=== PATIENT | female | born 1980 | race Caucasian/White ===

== ENCOUNTER 2018-02-06 14:03 | Inpatient (IN) ==
[2018-02-06] MEDS ORDERED: SODIUM CHLORIDE 0.9% 500 ML IV STA (14:31)
[2018-02-06] MEDS ORDERED: metroNIDAZOLE INJ 500 MG in PREMIX 1 EACH IV STA (14:31)
[2018-02-06] MEDS ORDERED: DICYCLOMINE 20 MG/2 ML AMP IM ONE ×2 (14:31→14:34)
[2018-02-06] MEDS ORDERED: ONDANSETRON 4 MG/2 ML VIAL IV STA (14:31)
[2018-02-06] MEDS ORDERED: PANTOPRAZOLE 40 MG VIAL IV STA (14:31)
[2018-02-06] MEDS ORDERED: PANTOPRAZOLE 40 MG VIAL IV ONE (14:34)
[2018-02-06] MEDS ORDERED: ONDANSETRON 4 MG/2 ML VIAL ONE (14:34)
[2018-02-06] MEDS ORDERED: metroNIDAZOLE 500 MG/100 ML PREMIX IV ONE (15:20)
[2018-02-06 15:24] LABS: Apearance,Urine CLEAR (Clear); Bacteria,Urine Occasional /HPF (Few); Bilirubin,Urine Negative (Negative); Blood, Urine Negative (Negative); Glucose,Urine (UA) Negative (Negative); Ketones,Urine Negative (Negative); Mucus,Urine Occasional /LPF (Occasional); Nitrite,Urine Negative (Negative); Protein,Urine Negative; RBC,Urine <1 /HPF (0-4); Squamous Epithelial Cell,Urine Occasional /HPF (0-10); Urine Color Straw (Yellow); Urine Specific Gravity 1.009 (1.001-1.035); Urine Urobilinogen < 2.0 EU/DL (0.2-1.0); WBC,Urine <1 /HPF (0-6)
[2018-02-06] MEDS ORDERED: MORPHINE 4 MG/1 ML VIAL IV STA ×2 (15:24→15:30)
[2018-02-06] MEDS ORDERED: MORPHINE 4 MG/1 ML VIAL ONE ×2 (15:25→18:25)
[2018-02-06 15:26] LABS: Basophils # 0.1 10*3/uL (0.0-0.2); Basophils % 0.7 % (0.0-0.8); Eosinophils # 0.4 10*3/uL (0.0-0.87); Eosinophils % 3.4 % (0.00-10.9); Hematocrit 42.4 VOL% (35.7-47.0); Hemoglobin 14.4 GM/DL (12.0-16.0); Immature Granulocytes % 1.1 %; Immature Granulocytes Absolute 0.14 #; Lymphocytes # 3.4 10*3/uL (1.4-4.0); Lymphocytes % 27.8 % (21.3-54.2); Mean Corpuscular Hemoglobin 33 PG (27-34); Mean Corpuscular Volume 95.9 FL (87-102); Monocytes # 1.1 10*3/uL (0.11-0.8); Neutrophils # 7.2 10*3/uL (1.4-7.4); Platelet Count 233 T/CUMM (130-400); Red Blood Count 4.42 MC/CUMM (3.8-5.5); Red Cell Distribution Width 11.9 % (9.3-17.3); White Blood Count 12.3 T/CUMM (4-12)
[2018-02-06 15:59] LABS: Alanine Aminotransferase 25 U/L (13-56); Albumin 3.2 G/DL (3.4-5.0); Alkaline Phosphatase 62 U/L (45-117); Amylase 43 U/L (25-115); Aspartate Amino Transferase 24 U/L (0-37); Bilirubin,Total < 0.39 MG/DL (0.2-1.0); Blood Urea Nitrogen 11 MG/DL (7-18); Calcium 8.3 MG/DL (8.5-10.1); Glucose 98 MG/DL (74-106); Osmolality,Calculated 275.5 MOS/KG (273-304); Potassium 4.2 MMOL/L (3.5-5.1); Sodium 139 MMOL/L (136-145)
[2018-02-06] MEDS: MORPHINE 4 MG/1 ML VIAL IV PRN ×2 (18:30→23:17)
[2018-02-06] MEDS ORDERED: ENOXAPARIN 40 MG/0.4 ML SYRINGE SUBCUT SCH (21:00)
[2018-02-06] MEDS: guaiFENesin/DM ER 600-30 MG TABLET PO SCH (21:42)
[2018-02-06] MEDS: levETIRAcetam 500 MG TABLET PO SCH (21:42)
[2018-02-06] MEDS: oxyCODONE/ACETAMINOPHEN 5-325 MG TABLET PO SCH (21:42)
[2018-02-06] MEDS: GABAPENTIN 300 MG CAPSULE PO SCH (21:43)
[2018-02-06] MEDS: SODIUM CHLORIDE 0.9% 1,000 ML IV SCH (21:54)
[2018-02-06] MEDS: CIPROFLOXACIN INJ 400 MG in PREMIX 1 EACH IV SCH (21:58)
[2018-02-07] MEDS: metroNIDAZOLE INJ 500 MG in PREMIX 1 EACH IV SCH ×5 (00:43→22:31)
[2018-02-07] MEDS: SODIUM CHLORIDE 0.9% 1,000 ML IV SCH ×2 (02:47→14:57)
[2018-02-07] MEDS: MORPHINE 4 MG/1 ML VIAL IV PRN ×5 (03:30→22:31)
[2018-02-07 05:32] LABS: Basophils # 0.1 10*3/uL (0.0-0.2); Basophils % 0.7 % (0.0-0.8); Eosinophils # 0.4 10*3/uL (0.0-0.87); Eosinophils % 4.1 % (0.00-10.9); Hematocrit 39.3 VOL% (35.7-47.0); Immature Granulocytes % 1.5 %; Immature Granulocytes Absolute 0.14 #; Lymphocytes # 3.4 10*3/uL (1.4-4.0); Lymphocytes % 35.9 % (21.3-54.2); Mean Corpuscular HGB Conc 33.1 GM/DL (32-36); Mean Corpuscular Hemoglobin 33 PG (27-34); Mean Corpuscular Volume 98.5 FL (87-102); Mean Platelet Volume 10.9 FL (9.6-12.0); Monocytes # 0.7 10*3/uL (0.11-0.8); Monocytes % 7.2 % (1.7-12.7); Neutrophils # 4.8 10*3/uL (1.4-7.4); Neutrophils % 50.6 % (38.7-73.9); Platelet Count 194 T/CUMM (130-400); Red Blood Count 3.99 MC/CUMM (3.8-5.5); Red Cell Distribution Width 11.9 % (9.3-17.3); White Blood Count 9.4 T/CUMM (4-12)
[2018-02-07 06:36] LABS: Calcium 7.4 MG/DL (8.5-10.1); Osmolality,Calculated 280.3 MOS/KG (273-304); Potassium 3.9 MMOL/L (3.5-5.1)
[2018-02-07] MEDS: guaiFENesin/DM ER 600-30 MG TABLET PO SCH ×2 (09:16→21:14)
[2018-02-07] MEDS: GABAPENTIN 300 MG CAPSULE PO SCH ×3 (09:16→21:14)
[2018-02-07] MEDS: levETIRAcetam 500 MG TABLET PO SCH ×2 (09:16→21:14)
[2018-02-07] MEDS: FLUoxetine 20 MG CAPSULE PO SCH (09:17)
[2018-02-07] MEDS: oxyCODONE/ACETAMINOPHEN 5-325 MG TABLET PO SCH ×3 (09:17→21:14)
[2018-02-07] MEDS: NICOTINE 21 MG/24 HR PATCH TRANSDERM SCH (09:18)
[2018-02-07] MEDS: POLYETHYLENE GLYCOL POWDER 17 GM PACK PO SCH (09:20)
[2018-02-07] MEDS: CIPROFLOXACIN INJ 400 MG in PREMIX 1 EACH IV SCH ×2 (09:23→21:13)
[2018-02-07] MEDS: PANTOPRAZOLE 40 MG TABLET PO SCH (18:38)
[2018-02-07] MEDS: ONDANSETRON 4 MG/2 ML VIAL IV PRN (21:14)
[2018-02-08] MEDS: SODIUM CHLORIDE 0.9% 1,000 ML IV SCH ×3 (02:31→15:11)
[2018-02-08] MEDS: MORPHINE 4 MG/1 ML VIAL IV PRN ×5 (02:31→22:37)
[2018-02-08] MEDS: metroNIDAZOLE INJ 500 MG in PREMIX 1 EACH IV SCH ×4 (03:31→22:36)
[2018-02-08 05:13] LABS: Basophils # 0.1 10*3/uL (0.0-0.2); Basophils % 0.6 % (0.0-0.8); Eosinophils # 0.5 10*3/uL (0.0-0.87); Eosinophils % 5.1 % (0.00-10.9); Hematocrit 39.8 VOL% (35.7-47.0); Hemoglobin 13.4 GM/DL (12.0-16.0); Immature Granulocytes % 2.3 %; Immature Granulocytes Absolute 0.21 #; Lymphocytes # 3.1 10*3/uL (1.4-4.0); Lymphocytes % 33.9 % (21.3-54.2); Mean Corpuscular HGB Conc 33.7 GM/DL (32-36); Mean Corpuscular Hemoglobin 32 PG (27-34); Mean Corpuscular Volume 96.1 FL (87-102); Mean Platelet Volume 10.9 FL (9.6-12.0); Monocytes # 0.7 10*3/uL (0.11-0.8); Monocytes % 7.9 % (1.7-12.7); Neutrophils # 4.6 10*3/uL (1.4-7.4); Neutrophils % 50.2 % (38.7-73.9); Platelet Count 215 T/CUMM (130-400); Red Blood Count 4.14 MC/CUMM (3.8-5.5); White Blood Count 9.2 T/CUMM (4-12)
[2018-02-08 05:41] LABS: Osmolality,Calculated 280.1 MOS/KG (273-304); Potassium 4.7 MMOL/L (3.5-5.1)
[2018-02-08] MEDS: PANTOPRAZOLE 40 MG TABLET PO SCH ×2 (06:17→18:26)
[2018-02-08] MEDS: BISACODYL 5 MG TABLET PO SCH ×3 (06:17→22:37)
[2018-02-08] MEDS: POLYETHYLENE GLYCOL POWDER 17 GM PACK PO SCH (09:41)
[2018-02-08] MEDS: guaiFENesin/DM ER 600-30 MG TABLET PO SCH ×2 (09:43→21:12)
[2018-02-08] MEDS: oxyCODONE/ACETAMINOPHEN 5-325 MG TABLET PO SCH ×3 (09:43→21:12)
[2018-02-08] MEDS: FLUoxetine 20 MG CAPSULE PO SCH (09:43)
[2018-02-08] MEDS: levETIRAcetam 500 MG TABLET PO SCH ×2 (09:43→21:12)
[2018-02-08] MEDS: GABAPENTIN 300 MG CAPSULE PO SCH ×3 (09:43→21:12)
[2018-02-08] MEDS: NICOTINE 21 MG/24 HR PATCH TRANSDERM SCH (09:45)
[2018-02-08] MEDS: CIPROFLOXACIN INJ 400 MG in PREMIX 1 EACH IV SCH ×2 (09:46→21:11)
[2018-02-08] MEDS: ONDANSETRON 4 MG/2 ML VIAL IV PRN (11:23)
[2018-02-08] MEDS ORDERED: POLYETHYLENE GLYCOL POWDER 255 GM BOTTLE PO ONE (18:00)
[2018-02-08] MEDS ORDERED: MAGNESIUM CITRATE 300 ML BOTTLE PO ONE (21:00)
[2018-02-09] MEDS: MORPHINE 4 MG/1 ML VIAL IV PRN ×2 (03:54→11:38)
[2018-02-09] MEDS: metroNIDAZOLE INJ 500 MG in PREMIX 1 EACH IV SCH ×2 (03:54→12:29)
[2018-02-09] MEDS: SODIUM CHLORIDE 0.9% 1,000 ML IV SCH ×2 (03:54→03:56)
[2018-02-09] MEDS: PANTOPRAZOLE 40 MG TABLET PO SCH (07:24)
[2018-02-09] MEDS ORDERED: LIDOCAINE 1% 5 ML VIAL ONE (08:10)
[2018-02-09] MEDS ORDERED: PROPOFOL 200 MG/20 ML VIAL IV ONE (08:10)
[2018-02-09] MEDS ORDERED: MIDAZOLAM 2 MG/2 ML VIAL ONE (08:38)
[2018-02-09] MEDS: levETIRAcetam 500 MG TABLET PO SCH (10:28)
[2018-02-09] MEDS: GABAPENTIN 300 MG CAPSULE PO SCH ×2 (10:28→15:03)
[2018-02-09] MEDS: POLYETHYLENE GLYCOL POWDER 17 GM PACK PO SCH (10:29)
[2018-02-09] MEDS: CIPROFLOXACIN INJ 400 MG in PREMIX 1 EACH IV SCH (10:29)
[2018-02-09] MEDS: guaiFENesin/DM ER 600-30 MG TABLET PO SCH (10:29)
[2018-02-09] MEDS: FLUoxetine 20 MG CAPSULE PO SCH (10:29)
[2018-02-09] MEDS: oxyCODONE/ACETAMINOPHEN 5-325 MG TABLET PO SCH ×2 (10:29→15:03)
[2018-02-09] MEDS: NICOTINE 21 MG/24 HR PATCH TRANSDERM SCH (10:34)
[2018-02-09 10:55] VITALS: BP 128/74
[2018-02-09] MEDS ORDERED: HYOSCYAMINE 0.125 MG TABLET PO SCH (15:00)
== END 2018-02-09 15:43 | disposition home or self-care (01) | DRG 249 ==
LOC: N.ED 14:03 → SUATTDRO 17:21 → N.EDINP 17:21 → N.3E 19:51
PROVIDERS: ADMIT Internal Medicine Cardiovascular Disease; ATTEND Internal Medicine
PROC: COLONBX (2018-02-09 06:05)